=== PATIENT | female | born 1980 | race Caucasian/White ===

== ENCOUNTER 2018-02-27 12:16 | Inpatient (IN) | payer MEDICAID ==
[~2018-02-27] VITALS: Ht 154.9 cm; Wt 66.3 kg
[2018-02-27 13:48] VITALS: Ht 154.9 cm; Wt 66.3 kg
--- NOTE | 2018-02-27 14:32 | HP ---
Date/Time of Note Date/Time of Note DATE: 02/27/18 TIME: 14:29 OB - History Hx of Present Chief Complaint: elevated BP inclinic Estimated Due Date: Mar 28, 2018 : 1 Para: 0 Spontaneous : 0 Therapeutic : 0 Care: Good Care Ultrasounds: Normal mid trimester US Obstetrical Complications: Gestational Hypertension Medical Complications: None Past Family/Social History * Past Medical, Surgical, Family and Obstetric Histories reviewed from chart. GBS Status: Negative OB Admission Exam Physical Exam HEENT: WNL Heart: Rhythm Normal Lungs: Clear, Equal Abdomen: WNL Extremities: Normal Reflexes: Normal Heart Rate: 120's Accelerations: Accelerations Present Decelerations: No Decelerations Varibility: Moderate Last 72 hours Lab Results OB Assessment/Plan Reason for admission: other Other Assessment: Severe preeclampsia Plan: Other Other plan: IV magnesium sulfate HAI Kaplan MD Feb 27, 2018 14:32
[2018-02-27] MEDS ORDERED: MAGNESIUM SULFATE 4 GM/100 ML 100 ML ONE (14:50)
[2018-02-27] MEDS ORDERED: MAGNESIUM SULFATE 20 GM/500 ML 500 ML IV ONE (14:50)
[2018-02-27] MEDS ORDERED: MISOPROSTOL 200 MCG TAB PR PRN (15:00)
[2018-02-27] MEDS ORDERED: METHYLERGONOVINE 0.2 MG INJ IM PRN (15:00)
[2018-02-27] MEDS ORDERED: IBUPROFEN 600 MG TAB PO PRN (15:00)
[2018-02-27] MEDS ORDERED: OXYTOCIN 30 UNITS/LR 500 ML IV SCH ×2 (15:00)
[2018-02-27] MEDS ORDERED: CARBOPROST 250 MCG INJ IM PRN (15:00)
[2018-02-27] MEDS ORDERED: MISOPROSTOL 50 MCG CAPSULE VAG ONE (15:00)
[2018-02-27] MEDS ORDERED: AMPICILLIN 2 GM/NS (PMX) 100 ML IV ONE (15:00)
[2018-02-27] MEDS ORDERED: BUTORPHANOL 2 MG INJ IV PRN (15:00)
[2018-02-27] MEDS ORDERED: MAGNESIUM SULFATE 4 GM/100 ML 100 ML IV ONE (15:00)
[2018-02-27] MEDS ORDERED: LIDOCAINE 1% (MPF) 30 ML INJ INJ PRN (15:00)
[2018-02-27] MEDS ORDERED: OXYTOCIN 30 UNITS/LR 500 ML IV PRN (15:00)
[2018-02-27] MEDS: LACTATED RINGER'S 1,000 ML IV SCH ×2 (15:10→15:14)
--- NOTE | 2018-02-27 15:19 | TRIAGE ---
OB Triage Datetime Report Generated by CPN: 02/27/2018 15:19 Datetime: 02/27/2018 14:29 Stage of : OB Triage Assessment Type: Triage Maternal Assessment Level of Consciousness: Fully Conscious Maternal Assessment Level of Consciousness: Fully Conscious DTR's/Clonus: DTRs 2+; No Clonus DTR's/Clonus: DTRs 2+; No Clonus Headache: Denies Headache: Denies Blurred Vision: No Blurred Vision: No Respiratory Effort: Unlabored; Regular Rhythm; Equal Expansion Breath Sounds, Left: Clear and Equal Breath Sounds, Right: Clear and Equal Nausea/Vomiting: Denies Nausea/Vomiting: Denies RUQ Epigastric Pain: Denies RUQ Epigastric Pain: Denies Facial Edema: None Facial Edema: None Temperature Route: Axillary Fall Risk Assessment History of Falling: (0) No Secondary Diagnosis: (0) No Ambulatory Aid: (0) Bedrest/Nurse Assist IV Therapy: (0) No Gait: (0) Normal/Bedrest/Immobile Mental Status: (0) Oriented to Own Ability Fall Score: 0 Fall Risk Score Definition: No Risk: No action required Labor Evaluation Frequency: OCC Monitor Mode: External Quality: Mild Pattern: Normal: <= 5 Contractions in 10 Minutes Resting Tone [place]: Relaxed Heart Rate FHR Baseline Rate: 130 Monitor Mode: External US FHR Baseline Changes: No Baseline Change Variability: Moderate 6-25 bpm Accelerations: 15X15 Decelerations: None Category: Category I Datetime: 02/27/2018 14:14 Stage of : OB Triage Datetime: 02/27/2018 13:33 EGA: 35.6 Datetime: 02/27/2018 13:32 Time of Arrival: 02/27/2018 13:29 Arrived By: Ambulatory Arrived From: Office Chief Complaint: HIGH BP Movement: Present Contractions: Denies/Absent Rupture of Membranes: Denies Vaginal Bleeding: None Vaginal Discharge: Denies Recent Sexual Intercouse: Denies Abdominal Trauma: Not Applicable Patient Complaints: None Time Provider Notified: 02/27/2018 14:22 Provider Notified: BECKY Initial Plan: CBC,CMP, URIC ACID, UA, BPP, SAMANTHA
[2018-02-27] MEDS: MAGNESIUM SULFATE 20 GM/500 ML 500 ML IV SCH (15:20)
[2018-02-27] MEDS: MISOPROSTOL 50 MCG CAPSULE PO SCH ×2 (16:49→20:59)
[2018-02-27] MEDS ORDERED: LABETALOL HCL 20MG INJ IV ONE (17:00)
[2018-02-27] MEDS ORDERED: LABETALOL HCL 20MG INJ IV PRN ×2 (18:00→23:30)
[2018-02-27] MEDS ORDERED: AMPICILLIN 1 GM/NS (PMX) 50 ML IV SCH (19:00)
[2018-02-27] MEDS ORDERED: LABETALOL HCL 20MG INJ IV STA (19:13)
[2018-02-27] MEDS ORDERED: hydrALAzine 20 MG INJ IV PRN (19:30)
[2018-02-27] MEDS: LABETALOL HCL 20MG INJ IV PRN (23:05)
[2018-02-28] VITALS (12 sets, daily range): BP systolic 115–154; BP diastolic 62–87; PULSE 81–86; RESP 18–20
[2018-02-28] MEDS ORDERED: hydrALAzine 20 MG INJ IV PRN (01:00)
[2018-02-28] MEDS: LACTATED RINGER'S 1,000 ML IV SCH ×2 (01:37→13:02)
--- NOTE | 2018-02-28 01:49 | PREAC ---
Date/Time of Note Date/Time of Note DATE: 02/28/18 TIME: 01:48 Anesthesia Eval and Record Evaluation Time Pre-Procedure Interview DATE: 02/28/18 TIME: 01:48 Age 37 Sex female NPO: 8 hrs Preoperative diagnosis preclampsia Planned procedure primary Csection Past Medical History Past Medical History: Includes : PIH Surgery & Anesthesia Issues No known issue Meds Anticoagulation: No Beta Boogie within 24 hr: No Reason Beta Boogie not given: Pt. not on B-Boogie Current Medications Lactated Ringer's 1,000 ml @ 125 mls/hr Q8H IV Last administered on 02/28/18at 01:37; Admin Dose 125 MLS/HR; Start 02/27/18 at 14:41 Butorphanol Tartrate (Stadol) 2 mg Q2H PRN IV PAIN; Start 02/27/18 at 15:00 Lidocaine (Xylocaine 1% (Mpf)) 30 ml ONCE PRN INJ EPISIOTOMY; Start 02/27/18 at 15:00 Oxytocin/Lactated Ringer's 500 ml @ 500 mls/hr ONCE POST IV ; Start 02/27/18 at 15:00 Oxytocin/Lactated Ringer's 500 ml @ 125 mls/hr POST IV ; Start 02/27/18 at 15:00 Ibuprofen (Motrin) 600 mg ONCE PRN PO PAIN LEVEL 1-5; Start 02/27/18 at 15:00 Oxytocin/Lactated Ringer's 500 ml @ 0 mls/hr ONCE PRN IV VAGINAL BLEEDING; Start 02/27/18 at 15:00 Methylergonovine Maleate (Methergine) 0.2 mg ONCE PRN IM VAGINAL BLEEDING; Start 02/27/18 at 15:00 Carboprost Tromethamine (Hemabate) 250 mcg ONCE PRN IM VAGINAL BLEEDING; Start 02/27/18 at 15:00 Misoprostol (Cytotec) 1,000 mcg ONCE PRN NV VAGINAL BLEEDING; Start 02/27/18 at 15:00 Magnesium Sulfate 500 ml @ 50 mls/hr Q10H IV Last administered on 02/27/18at 15:20; Admin Dose 50 MLS/HR; Start 02/27/18 at 15:00 Misoprostol (Cytotec 50 Mcg Capsule) 50 mcg Q4 PO Last administered on 02/27/18at 20:59; Admin Dose 50 MCG; Start 02/27/18 at 17:00 Labetalol HCl (Labetalol) 20 mg Q15M PRN IV SBP > 160 Last administered on 02/27/18at 23:05; Admin Dose 20 MG; Start 02/27/18 at 18:00 Labetalol HCl (Labetalol) 40 mg PRN PRN IV SBP> 160 IF 20 MG NOT EFFECTIV Last administered on 02/27/18at 18:24; Admin Dose 40 MG; Start 02/27/18 at 18:00 Labetalol HCl (Labetalol) 80 mg PRN PRN IV ELEVATED BLOOD PRESSURE; Start 02/27/18 at 23:30 Hydralazine HCl (Apresoline) 10 mg ONCE PRN IV ELEVATED BLOOD PRESSURE; Start 02/28/18 at 01:00 Cefazolin Sodium/ Dextrose 50 ml @ 100 mls/hr ONCE IVPB ; Start 02/28/18 at 02:00 Oxytocin/Lactated Ringer's 500 ml @ 125 mls/hr POST IV ; Start 02/28/18 at 02:00 Oxytocin/Lactated Ringer's 500 ml @ 0 mls/hr ONCE PRN IV VAGINAL BLEEDING; Start 02/28/18 at 02:00 Methylergonovine Maleate (Methergine) 0.2 mg ONCE PRN IM VAGINAL BLEEDING; Start 02/28/18 at 02:00 Carboprost Tromethamine (Hemabate) 250 mcg ONCE PRN IM VAGINAL BLEEDING; Start 02/28/18 at 02:00 Misoprostol (Cytotec) 1,000 mcg ONCE PRN NV VAGINAL BLEEDING; Start 02/28/18 at 02:00 Meds reviewed: Yes Allergies Coded Allergies: No Known Allergy (Unverified , 02/27/18) Allergies Reviewed: Yes Labs/Studies Labs Reviewed: Reviewed by anesthesiologist Result Diagram: 02/27/18 1406 02/27/18 1406 Laboratory Tests 02/27/18 14:06 Blood Bank Test 02/27/18 14:06 Antibody Screen NEGATIVE Blood Type O POSITIVE Rh Immune Globulin Candidate NO test: Positive Pre-procedure Exam Airway: Adequate mouth opening, Adequate thyromental dist Mallampati: Mallampati III Teeth: Normal Lung: Normal Heart: Normal ASA Physical Status ASA physical status: 3 Emergency: E Planned Anesthetic Neuraxial: Spinal Planned Pain Management Sub-arachniod narcotics, Parenteral pain med, Other neuraxial med Pre-operative Attestations Prior to commencing anesthesia and surgery, the patient was re-evaluated, there was verification of: *The patient's identity *The results of appropriate recent lab work and preoperative vital signs *The above evaluation not changing prior to induction *Anesthetic plan, risk benefits, alternative and complications discussed with patient/family; questions answered; patient/family understands, accepts and wishes to proceed. RICK HERRERA MD Feb 28, 2018 01:49
[2018-02-28] MEDS ORDERED: ONDANSETRON 4 MG INJ IV STA (01:52)
[2018-02-28] MEDS ORDERED: OXYTOCIN 10 UNIT INJ ONE ×2 (01:55)
[2018-02-28] MEDS ORDERED: morphine SULFATE/PF (10 MG/10 ML) INJ ONE (01:55)
[2018-02-28] MEDS ORDERED: ONDANSETRON 4 MG INJ ONE (01:56)
[2018-02-28] MEDS ORDERED: FAMOTIDINE 20 MG INJ ONE (01:56)
[2018-02-28] MEDS ORDERED: METOCLOPRAMIDE 10 MG INJ ONE (01:56)
[2018-02-28] MEDS ORDERED: FENTAnyl 50 MCG/ML VIAL IV PRN ×2 (02:00)
[2018-02-28] MEDS ORDERED: METOCLOPRAMIDE 10 MG INJ IV ONE (02:00)
[2018-02-28] MEDS ORDERED: CARBOPROST 250 MCG INJ IM PRN ×2 (02:00→10:00)
[2018-02-28] MEDS ORDERED: MISOPROSTOL 200 MCG TAB PR PRN ×2 (02:00→10:00)
[2018-02-28] MEDS ORDERED: ONDANSETRON 4 MG INJ IV PRN ×3 (02:00→03:30)
[2018-02-28] MEDS ORDERED: KETOROLAC 30 MG INJ IV PRN ×3 (02:00→03:30)
[2018-02-28] MEDS ORDERED: OXYTOCIN 30 UNITS/LR 500 ML IV PRN ×2 (02:00→10:00)
[2018-02-28] MEDS ORDERED: METHYLERGONOVINE 0.2 MG INJ IM PRN (02:00)
[2018-02-28] MEDS ORDERED: CEFAZOLIN 2 GM/50 ML (PMX) 50 ML IVPB SCH (02:00)
[2018-02-28] MEDS ORDERED: DIPHENHYDRAMINE 50 MG INJ IV PRN ×3 (02:00→03:30)
[2018-02-28] MEDS ORDERED: HYDROmorphONE 1 MG/5 ML IV SYRINGE IV PRN ×3 (02:00)
[2018-02-28] MEDS ORDERED: NALOXONE (0.4 MG/ML) INJ IV PRN ×2 (02:00→03:30)
[2018-02-28] MEDS ORDERED: HYDROmorphONE 0.5 MG/0.5 ML SYG IV PRN ×4 (02:00→03:30)
[2018-02-28] MEDS ORDERED: FAMOTIDINE 20 MG INJ IV ONE (02:00)
[2018-02-28] MEDS ORDERED: OXYTOCIN 30 UNITS/LR 500 ML IV SCH ×2 (02:00→09:52)
--- NOTE | 2018-02-28 02:12 | QN ---
Documentation Comment I was informed by RN and charge nurse about nonreassuring heart tracing as well as elevated blood pressure of the patient that required multiple doses of IV antihypertensive medication. Patient is PIH and currently receiving magnesium for seizure prophylaxis. undergoing induction of labor. She had been managed by primary OB attending Dr. Sheehan. Due to NRFHT I was called to evaluate. Tracing evaluated. Decreased variability as well as retrospectively seen episodes of 3-minute deceleration and intermittent variable and some subtle decelerations. Sterile vaginal examination: 3 cm / 80%/+1 . Vertex presentation AROM performed. 2+ meconium noted scalp stimulation and, placement of FSE increased variability with small accelerations noted After review of tracing called for section due to nonreassuring heart tracing and PIH that required multiple doses of IV antihypertensive medication. Risk and benefit of section including risk of infection, damage to surrounding structures including bowel and bladder and risk of blood transfusion including but not limited to blood borne infection including HIV, hepatitis B and C and transfusion reaction discussed with patient in detail and informed consent was obtained. Patient verbalized understanding all the above discussion. OR and anesthesia was notified Receive antibiotics for prophylaxis Proceed to the OR. YANDY STEIN MD Feb 28, 2018 02:12
[2018-02-28] MEDS ORDERED: ACETAMINOPHEN 500 MG TAB PO PRN (03:30)
[2018-02-28] MEDS ORDERED: ZOLPIDEM 5 MG TAB PO PRN (03:30)
[2018-02-28] MEDS ORDERED: OXYCODONE/ACETAMINOPHEN (5/325) TAB PO PRN (03:30)
[2018-02-28] MEDS ORDERED: HYDROmorphONE 0.2 MG/ML PCA IV SCH (03:30)
--- NOTE | 2018-02-28 03:43 | OPR ---
Operative Report Planned Procedure Free Text/Dictation February 28, 2018 Procedure date Feb 28, 2018 Procedure(s) Emergency low transverse section Via Pfannenstiel skin incision Performed by see signature line House Painter: MORIS RUBIO Anesthesiologist: RICK HERRERA MD Pre-procedure diagnosis 1. Severe PIH 2. Nonreassuring heart tracing, Category 3 [id number] Anesthesia Type: [id number] general Post-Procedure Post-procedure diagnosis Same occiput posterior Findings Live Baby [], Apgars [] and [], weight [], position [], [] presentation []cord. Estimated Blood Loss: 600 - 700 mls Specimen(s) Cord blood and cord gas Grafts/Implant(s) none Complication(s) none Pt Condition post procedure: stable Disposition: PACU Procedure Description I was informed by RN due to nonreassuring heart tracing of this patient that was undergoing induction due to PIH. Patient had been managed by primary OB during labor and was signed out to me when had nonreassuring heart tracing Attended to the patient bedside. Tracing reviewed. Episodes of decreased variability with occasional variable deceleration and some subtle decelerations. Status post amniotomy. Thin meconium noted. Patient had received multiple doses of IV antihypertensive medication during the labor course due to severe PIH. Blood pressures receiving antihypertensive medication in the range of prior to 170s-190s over 90s 100's meet the criteria for severe preeclampsia, Already received multiple doses of IV antihypertensive medication due to nonreassuring heart tracing and PIH discussed with the patient regarding section. Risks and benefits of section discussed with the patient. Patient verbalized understanding. Patient was scheduled for initially urgent section however due to episodes of deceleration down to 70s-80s patient underwent emergency section with general anesthesia. After splashed Betadine prep a Pfannenstiel skin incision was made in the lower abdomen and was carried down to the underlying layer of fascia using scalpel and Bovie. And the fascial incision was opened transversely. After opening the fascia rectus muscle was opened in the midline and the parietoperitoneum was identified and was entered bluntly. Bladder blade was placed and lower uterine segment was identified and was entered sharply with careful attention to the bladder using scalpel. Intra-brandi rine cavity entered and the baby's head was then grasped and was brought up to the incision. Baby's head was noted to be in occiput posterior position. It was delivered while medical support assistant was pushing fundal pressure. Upon delivery of the head immediately nose and mouth was suctioned and then while medical support assistant was applying fundal pressure anterior shoulder and the posterior shoulder and the rest of the body delivered. Baby's was 8 and 9. Cord blood and cord gas was obtained. Placenta was then delivered intact and was sent to pathology. Any uterus was cleared of all clots and debris's. And the uterine incision was repaired in 2 layers using 1-0 Monocryl. First layer used for hemostasis with continuous locked fashion and second layer used for imbrication. Excellent hemostasis of the incision was obtained. There was a small amount of oozing behind the bladder and behind the patient in the bladder that was controlled using Bovie and fibrillar was applied over the incision. Gutters were cleared of all clots and debris's. Then after reassurance about the hemostasis ovaries and tubes identified and was noted to be normal. Then laps were removed. Parietoperitoneum repaired using 2-0 Vicryl in a continuous fashion. Then the rectus muscle was reapproximated using 2-0 Vicryl and irrigation of subcutissue performed using warm normal saline. Subcutaneous tissue was reapproximated u sing multiple 2-0 plain gut and irrigation of subcutaneous tissue was also performed. Then the skin was reapproximated using 3-0 Monocryl in a subsequent fashion. Fundus was firm at the end of the delivery. Sponge, needle counts appears to be correct x2. Due to inability to do the count prior to procedure, X-ray was abdomen performed by the patient was the OR due to emergency situation that did not show any evidence of retained foreign body. Patient was tolerated the procedure well and was then transferred to recovery room in stable condition after was awake YANDY STEIN MD Feb 28, 2018 03:43
[2018-02-28] MEDS: MAGNESIUM SULFATE 20 GM/500 ML 500 ML IV SCH ×3 (04:01→22:13)
[2018-02-28] MEDS: LABETALOL HCL 20MG INJ IV PRN ×2 (05:50→06:55)
[2018-02-28] MEDS ORDERED: PROPOFOL 200 MG INJ ONE (07:00)
[2018-02-28] MEDS ORDERED: LANOLIN HPA 1 PKT TOP PRN (10:00)
[2018-02-28] MEDS: LABETALOL 200 MG TAB PO SCH ×2 (10:28→21:54)
[2018-02-28] MEDS: CEFAZOLIN 1 GM/50 ML (PMX) 50 ML IVPB SCH ×2 (10:40→17:45)
[2018-02-28] MEDS: NIFEdipine (XL) 30 MG TAB PO SCH (11:07)
--- NOTE | 2018-02-28 18:29 | NUR ---
EOSS; Vital signs stable, denies any pain or discomfort at this time. On Magnesium sulfate IV at 2gm/hr, chacon catheter draining clear yellow urine. Normal DTR'S. On dilaudid CERTIFIED EXECUTIVE CHEF intermittent. Unable to breast feed at this time as per patient states she is very sleepy. Family at bedside.
[2018-03-01] VITALS (9 sets, daily range): BP systolic 100–140; BP diastolic 56–84; PULSE 71–89; RESP 18–19
[2018-03-01] MEDS: CEFAZOLIN 1 GM/50 ML (PMX) 50 ML IVPB SCH (02:05)
--- NOTE | 2018-03-01 06:07 | NUR ---
EOSS: Pt is in stable condition. No distress noted. Got pt up on chair and walked to bathroom. No dizziness noted. Bonding well with baby. Due to void and stool.
[2018-03-01] MEDS ORDERED: INFLUENZA VIRUS VACCINE 0.5 ML (DISPENSING) IM* ONE (09:00)
[2018-03-01] MEDS: NIFEdipine (XL) 30 MG TAB PO SCH (09:13)
[2018-03-01] MEDS: SENNA TAB PO SCH ×2 (09:14→21:06)
[2018-03-01] MEDS: LABETALOL 200 MG TAB PO SCH ×2 (09:14→21:06)
[2018-03-01] MEDS: IBUPROFEN 600 MG TAB PO SCH ×2 (12:00→18:09)
--- NOTE | 2018-03-01 15:50 | NUR ---
dr osuna here, aware of am cbc, saw pt and gave new orders.
[2018-03-01] MEDS: LACTATED RINGER'S 1,000 ML IV SCH (16:19)
--- NOTE | 2018-03-01 16:28 | QN ---
Documentation Comment no c/o no BM afebrile but WBC 69728 abdomen soft wound ok CVA ? tenderness baldomero lochia mod calf neg for tenderness A s/p Primary c/s for GHTN leukocytosis P ancef [id number] u/a urine c/s repeat cbc in am JUAN F SUN MD Mar 01, 2018 16:28
--- NOTE | 2018-03-01 16:55 | NUR ---
midstream urine with clean catch obtained and sent to lab for u/a and c/s
[2018-03-01] MEDS: CEFAZOLIN 2 GM/50 ML (PMX) 50 ML IVPB SCH (17:04)
--- NOTE | 2018-03-01 17:21 | NUR ---
eoss: vss, afebrile, denies problems with urination, fundus firm, lochia scant, bonding well with baby, iv infusing left forearm via pump for iv antibiotic therapy due to elevated wbc=25.3 on 03/01/18, repeat cbc in am. seen by dr osuna for dr johnson.
[2018-03-02] MEDS: IBUPROFEN 600 MG TAB PO SCH ×4 (00:23→17:41)
[2018-03-02] MEDS: CEFAZOLIN 2 GM/50 ML (PMX) 50 ML IVPB SCH ×3 (01:07→16:33)
--- NOTE | 2018-03-02 02:18 | PAC ---
Date/Time of Note Date/Time of Note DATE: 03/02/18 TIME: 02:17 Post-Anesthesia Notes Post-Anesthesia Note Last documented vital signs Vital Signs Date Temp Pulse Resp B/P (MAP) Pulse Ox O2 O2 Flow FiO2 Time Delivery Rate 03/01/18 98.9 85 19 131/61 Room Air 20:00 (84) 03/01/18 99 08:00 Activity: WNL Respiratory function: WNL Cardiovascular function: WNL Mental status: Baseline Pain reasonably controlled: Yes Hydration appropriate: Yes Nausea/Vomiting absent: Yes RICK HERRERA MD Mar 02, 2018 02:18
[2018-03-02] MEDS: LACTATED RINGER'S 1,000 ML IV SCH ×2 (03:07→16:34)
[2018-03-02 04:00] VITALS: BP 119/65; PULSE 70; RESP 18
--- NOTE | 2018-03-02 06:35 | NUR ---
EOSS: PATIENT IN STABLE CONDITION. IV RUNNING IN LEFT FOREARM, NO INFILTRATION, NO REDNESS. PATIENT AMBULATING WELL, VOIDING WELL. DUE TO PASS BM. PATIENT BONDING WELL WITH . ONLY FEEDING FORMULA, MEDICAL INDICATION, VIA BOTTLE. AFEBRILE.
[2018-03-02 08:00] VITALS: BP 138/71; PULSE 78; RESP 18
[2018-03-02] MEDS: SENNA TAB PO SCH ×2 (09:04→20:54)
[2018-03-02] MEDS: LABETALOL 200 MG TAB PO SCH ×2 (09:04→20:53)
[2018-03-02] MEDS: NIFEdipine (XL) 30 MG TAB PO SCH (09:04)
--- NOTE | 2018-03-02 11:36 | NUR ---
SW: CONSULTATION SW met with patient at bedside for consultation for "FOB not involved." Patient states that she lives with a friend at [address], [place] [address]. States that she is a single parent, and states that FOB was a friend and will not be involved in amber life. States that she has good support from friends, who help with transportation and will be helping with caring for the child at home. 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 She denies having an AHCD, and she verbally designated her friend Morris Cuevas ([phone]) as surrogate spokesperson. Patient denies any history of drug or ETOH abuse. Denies any history of anxiety, depression or mental illness. SW provided patient with resources for single parents, WIC, foodstamps, [employer] for baby, parenting resources, etc. Patient states she has good support and denies any issues/ concerns. Baby cleared to d/c home with mother upon d/c. SW remains available as needed.
[2018-03-02 16:00] VITALS: BP 119/63; PULSE 86; RESP 18
--- NOTE | 2018-03-02 17:14 | NUR ---
Eoss:Bonding well with baby,vital signs within normal level,had bm today,had shower today,incission clean and dry,ambualting without difficulty.
[2018-03-02 20:00] VITALS: BP 139/80; PULSE 84; RESP 18
[2018-03-03] MEDS: IBUPROFEN 600 MG TAB PO SCH ×3 (00:37→12:42)
[2018-03-03] MEDS: CEFAZOLIN 2 GM/50 ML (PMX) 50 ML IVPB SCH ×3 (00:55→14:00)
[2018-03-03] MEDS: LACTATED RINGER'S 1,000 ML IV SCH (01:59)
[2018-03-03 04:00] VITALS: BP 136/84; PULSE 83; RESP 18
[2018-03-03] MEDS ORDERED: IBUPROFEN 600 MG TAB PO SCH (06:00)
[2018-03-03 08:00] VITALS: BP 139/84; PULSE 83; RESP 20
[2018-03-03] MEDS ORDERED: DIPHTH/TET/ACEL PERTUSS (ADULT) 0.5 ML VIAL IM* ONE (09:00)
[2018-03-03] MEDS: SENNA TAB PO SCH (09:25)
[2018-03-03] MEDS: NIFEdipine (XL) 30 MG TAB PO SCH (09:26)
[2018-03-03] MEDS: LABETALOL 200 MG TAB PO SCH (09:26)
--- NOTE | 2018-03-03 11:12 | QN ---
Documentation Comment POD#3 is stable afebrile no VB +BM+voids No headache no epigastric pain no blurry vision VS stable BP WNL Gen NAD Abd soft NT ND Incision intact Genitalia No blood at perineum --->Discharge Home DESI SMITH M.D. Mar 03, 2018 11:12
--- NOTE | 2018-03-03 11:13 | DS ---
Date/Time of Note Date/Time of Note DATE: 03/03/18 TIME: 11:12 Discharge Summary Admission/Discharge Info Admit Date/Time Feb 27, 2018 at 14:10 Discharge Date/Time feb Discharge Diagnosis Patient Condition: Good Hospital Course uneventful Primary Care Provider Not On Staff Doctor DESI SMITH M.D. Mar 03, 2018 11:13
== END 2018-03-03 13:45 | disposition home or self-care (01) | DRG 787 ==
LOC: OBT 12:16 → L-D 12:18 → OBT 14:10 → L-D 14:10 → PP1 02-28 09:34
PROVIDERS: ADMIT Obstetrics & Gynecology; ATTEND Obstetrics & Gynecology
PROC: 3E033VJ Introduction of Other Hormone into Peripheral Vein, Percutaneous Approach (ICD-10-PCS; 2018-02-27)
PROC: 10907ZC Drainage of Amniotic Fluid, Therapeutic from Products of Conception, Via Natural or Artificial Opening (ICD-10-PCS; 2018-02-28)
PROC: 10D00Z1 Extraction of Products of Conception, Low, Open Approach (ICD-10-PCS; principal; 2018-02-28 02:30)
DX: O14.14 Severe pre-eclampsia complicating childbirth (principal); O76 Abnormality in fetal heart rate and rhythm complicating labor and delivery; O99.12 Other diseases of the blood and blood-forming organs and certain disorders involving the immune mechanism complicating childbirth; D72.829 Elevated white blood cell count, unspecified; Z3A.34 34 weeks gestation of pregnancy; Z37.0 Single live birth
CPT/HCPCS: 36415; 36600; 74018; 76815; 76818; 80053; 81001; 82803; 83735; 84560; 85025; 85610; 85730; 86592; 86850; 86900; 86901; 87086; 87340; 88307; 90686; 99464; G0463; J0690; J1170; J2274; J2405; J2590; J2765; J3475; J7120